=== PATIENT | male | born 1970 | race Caucasian/White ===

== ENCOUNTER 2020-09-26 16:21 | Emergency (ER) | payer MEDICAID ==
[~2020-09-26] VITALS: Ht 170.2 cm; Wt 90.7 kg
[2020-09-26 16:24] VITALS: BP_SYST 155
[2020-09-26] MEDS ORDERED: LIDOCAINE 1% 10 MG/ML, 20 ML MDV INJ ONE (17:15)
[2020-09-26] MEDS ORDERED: BACITRACIN 1 GM OINT TP ONE (17:28)
[2020-09-26 17:41] VITALS: BP_SYST 155
== END 2020-09-26 17:41 | disposition home or self-care (01) ==
LOC: SED 16:21
DX: S61.412A Laceration without foreign body of left hand, initial encounter (principal); W26.0XXA Contact with knife, initial encounter; Y93.89 Activity, other specified; Y92.89 Other specified places as the place of occurrence of the external cause; Y99.8 Other external cause status
CPT/HCPCS: 12001; 99282; J2001

== ENCOUNTER 2021-10-13 11:03 | Emergency (ER) | payer MEDICAID ==
[~2021-10-13] VITALS: Ht 170.2 cm; Wt 90.7 kg
[2021-10-13 11:08] VITALS: BP_SYST 146
--- NOTE | 2021-10-13 11:45 | NUR ---
DR POWER IN WAITING ROOM FOR EXAM.
[2021-10-13] MEDS ORDERED: ACET-2634 PO (11:59)
[2021-10-13] MEDS ORDERED: LIDO1ADH77 TD (11:59)
[2021-10-13] MEDS ORDERED: KETOROLAC TROMETHAMINE 60 MG/2 ML VIAL IM ONE (12:00)
--- NOTE | 2021-10-13 12:01 | NUR ---
PT COMES IN WITH C/O RT SHOULDER PAIN X 1 WEEK, DENIES ACUTE INJURY OR TRAUMA. 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
--- NOTE | 2021-10-13 12:33 | NUR ---
Patient given written and verbal discharge instructions and verbalizes understanding. ER MD discussed with patient the results and treatment provided. Patient in stable condition. ID arm band removed. IV catheter removed intact and dressing applied, no active bleeding. Rx of TYLENOL EXTRA STRENTH, LIDOCAINE given. Patient educated on pain management and to follow up with PMD. Pain Scale . Opportunity for questions provided and answered. Medication side effect fact sheet provided.
[2021-10-13 12:40] VITALS: BP_SYST 138
== END 2021-10-13 12:40 | disposition home or self-care (01) ==
LOC: SED 11:03
DX: S46.001A Unspecified injury of muscle(s) and tendon(s) of the rotator cuff of right shoulder, initial encounter (principal); M25.511 Pain in right shoulder; X58.XXXA Exposure to other specified factors, initial encounter; Y93.89 Activity, other specified; Y92.89 Other specified places as the place of occurrence of the external cause; Y99.8 Other external cause status
CPT/HCPCS: 99283; 96372; J1885